=== PATIENT | female | born 1995 | race Hispanic/Latino ===

== ENCOUNTER 2022-02-24 02:25 | Emergency (ER) | payer BC ==
[2022-02-24 03:21] LABS: Absolute Lymphocytes (CBC) 4.8 K/uL (0.7-4.9); Hematocrit 42.3 % (36.0-45.0); Lymphocytes % 40.3 % (15.3-44.8); MCV 96.4 fL (80-100); MPV 8.4 fL (7.6-11.3); RBC Red Blood Cell Count 4.39 M/uL (3.86-4.86)
[2022-02-24 03:35] LABS: Urine Blood 3+ (Negative); Urine Glucose Negative (Negative); Urine Protein Negative (Negative); Urine Specific Gravity 1.025 (1.005-1.030); Urine pH 6.5 (5.0-7.0)
[2022-02-24 03:59] LABS: Potassium 3.8 mmol/L (3.5-5.1)
--- NOTE | 2022-02-24 04:56 | ER ---
Nurse's Notes [facility] Name: Dang Zaidi Age: 26 yrs Sex: Female : 1995 Arrival Date: 02/24/2022 Time: 02:30 Bed 15 Private MD: Diagnosis: Abnormal uterine and vaginal bleeding, unspecified;Threatened Presentation: 02/24 02:41 Chief complaint: Patient states: i found out i was about a week ago. im lg3 supposed to have my first OB visit this coming Thursday. i started bleeding lightly before bed. woke up with heavy cramps and now blood clots. Coronavirus screen: Client denies travel out of the [place] in the last 14 days. At this time, the client does not indicate any symptoms associated with coronavirus-19. Ebola Screen: No symptoms or risks identified at this time. Initial Sepsis Screen: Does the patient meet any 2 criteria? No. Patient's initial sepsis screen is negative. Does the patient have a suspected source of infection? No. Patient's initial sepsis screen is negative. Risk Assessment: Do you want to hurt yourself or someone else? Patient reports no desire to harm self or others. Onset of symptoms was February 23, 2022. 02:41 Method Of Arrival: Ambulatory lg3 02:41 Acuity: KARMEN 3 lg3 Triage Assessment: 02:45 General: Appears in no apparent distress. uncomfortable, Behavior is cooperative, lg3 anxious, crying. Pain: Complains of pain in abdomen Pain currently is 3 out of 10 on a pain scale. Quality of pain is described as crampy. EENT: No deficits noted. No signs and/or symptoms were reported regarding the EENT system. Neuro: No deficits noted. Level of Consciousness is awake, alert, obeys commands, Oriented to person, place, time, situation. Cardiovascular: No deficits noted. Denies chest pain, shortness of breath, Capillary refill < 3 seconds Clubbing of nail beds is absent JVD is absent Patient's skin is warm and dry. Respiratory: No deficits noted. Airway is patent Trachea midline Respiratory effort is even, unlabored, Respiratory pattern is regular, symmetrical. GI: Abdomen is round non-distended, Bowel sounds present X 4 quads. Reports lower abdominal pain, cramping. : Reports vaginal bleeding that is bright red, with clots, moderate flow. Derm: No deficits noted. No signs and/or symptoms reported regarding the dermatologic system. Skin is intact, is healthy with good turgor, Skin is dry, Skin temperature is warm. Musculoskeletal: No deficits noted. No signs and/or symptoms reported regarding the musculoskeletal system. Circulation, motion, and sensation intact. Range of motion: intact in all extremities. 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 - Social history:: Smoking status: Patient denies any tobacco usage or history of. Patient/guardian denies using alcohol, street drugs. Screenin:47 Abuse screen: Denies threats or abuse. Denies injuries from another. Nutritional lg3 screening: No deficits noted. Tuberculosis screening: No symptoms or risk factors identified. Fall Risk None identified. Assessment: 02:49 General: see triage assessment. lg3 03:36 Reassessment: Patient appears in no apparent distress at this time. No changes from lg3 previously documented assessment. Patient and/or family updated on plan of care and expected duration. Pain level reassessed. Patient is alert, oriented x 3, equal unlabored respirations, skin warm/dry/pink. 04:13 Reassessment: Patient appears in no apparent distress at this time. Patient and/or ha1 family updated on plan of care and expected duration. Pain level reassessed. Patient is alert, oriented x 3, equal unlabored respirations, skin warm/dry/pink. 06:28 Reassessment: Patient appears in no apparent distress at this time. No changes from lg3 previously documented assessment. Patient and/or family updated on plan of care and expected duration. Pain level reassessed. Patient is alert, oriented x 3, equal unlabored respirations, skin warm/dry/pink. 06:30 Reassessment: Patient and/or family updated on plan of care and expected duration. Pain ha1 level reassessed. Patient is alert, oriented x 3, equal unlabored respirations, skin warm/dry/pink. being discharged Patient denies pain at this time. Vital Signs: 02:41 BP 144 / 86; Pulse 87; Resp 17 S; Temp 98.1(O); Pulse Ox 99% on R/A; Weight 72.57 kg lg3 (R); Height 5 ft. 3 in. (160.02 cm) (R); Pain 3/10; 03:37 BP 128 / 83; Pulse 81; Resp 16 S; Pulse Ox 100% on R/A; ha1 04:11 BP 128 / 83; Pulse 78; Resp 16 S; Pulse Ox 100% on R/A; ha1 05:00 BP 129 / 82; Pulse 81; Resp 17 S; Pulse Ox 100% on R/A; ha1 06:00 BP 128 / 80; Pulse 82; Resp 17 S; Pulse Ox 100% on R/A; ha1 02:41 Body Mass Index 28.34 (72.57 kg, 160.02 cm) lg3 Vitals: 06:28 Heart Tones 0. lg3 ED Course: 02:30 Patient arrived in ED. ja2 02:32 Zoran Ryan MD is Attending Physician. kdr 02:44 Triage completed. lg3 02:45 Arm band placed on right wrist. lg3 02:47 Patient has correct armband on for positive identification. Bed in low position. Call lg3 light in reach. Side rails up X 1. Client placed on continuous cardiac and pulse oximetry monitoring. NIBP monitoring applied. Door closed. Noise minimized. Warm blanket given. Family accompanied patient. 02:47 Inserted saline lock: 20 gauge in right antecubital area, using aseptic technique. lg3 Blood collected. 02:50 Quantitative Hcg Sent. lg3 02:50 CBC with Diff Sent. lg3 02:50 Basic Metabolic Panel Sent. lg3 02:50 Abo/rh Typing Sent. lg3 02:54 Lee Ann Reid, BARBER is Primary Nurse. lg3 05:00 US Transvaginal Ob In Process Unspecified. EDMS 06:27 Assist provider with pelvic exam: Set up pelvic tray. Performed by Zoran Ryan MD lg3 Specimens sent to lab. Patient tolerated well. IV discontinued, intact, bleeding controlled, No redness/swelling at site. Pressure dressing applied. 06:30 IV discontinued, intact, bleeding controlled, No redness/swelling at site. Pressure ha1 dressing applied. Administered Medications: No medications were administered Medication: 06:27 VIS not applicable for this client. lg3 Point of Care Testing: Urine : 06:27 hCG Reading: Positive; lg3 Outcome: 04:56 Discharge ordered by . kdr 06:27 Discharged to home ambulatory, with significant other. lg3 06:27 Condition: stable 06:27 Discharge instructions given to patient, significant other, Instructed on discharge instructions, follow up and referral plans. Demonstrated understanding of instructions, follow-up care. 06:33 Patient left the ED. ha1 Signatures: Dispatcher [employer] EDMS Zoran Ryan MD MD kdr Gibson, Lacie, RN RN lg3 Didi Paz Heidy, RN RN ha1
--- NOTE | 2022-02-24 04:56 | EDPHYS ---
Physician Documentation [facility] Name: Dang Zaidi Age: 26 yrs Sex: Female : 1995 Arrival Date: 02/24/2022 Time: 02:30 Bed 15 Private MD: ED Physician Zoran Ryan HPI: 02/24 04:20 This 26 yrs old Female presents to ER via Ambulatory with complaints of kdr Vaginal Bleeding, + Preg <12wks. 04:20 The patient presents to the emergency department with vaginal bleeding, that is kdr moderate, with clots. The estimated gestational age is 5 weeks. course: care: none, Leakage of Fluid: none appreciated, Ultrasound: the patient has not had an ultrasound, Risk/complications: no obvious risks or complications are appreciated. Previous pregnancies: the patient has never been . Associated signs and symptoms: The patient has no apparent associated signs or symptoms. The patient has not experienced similar symptoms in the past. The patient has not recently seen a physician. 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 - Social history:: Smoking status: Patient denies any tobacco usage or history of. Patient/guardian denies using alcohol, street drugs. ROS: 04:20 Constitutional: Negative for fever, chills, and weight loss, Eyes: Negative for injury, kdr pain, redness, and discharge, ENT: Negative for injury, pain, and discharge, Neck: Negative for injury, pain, and swelling, Cardiovascular: Negative for chest pain, palpitations, and edema, Respiratory: Negative for shortness of breath, cough, wheezing, and pleuritic chest pain, Back: Negative for injury and pain, MS/Extremity: Negative for injury and deformity, Skin: Negative for injury, rash, and discoloration, Neuro: Negative for headache, weakness, numbness, tingling, and seizure activity. Psych: Negative for depression, anxiety, suicide ideation, homicidal ideation, and hallucinations, Allergy/Immunology: Negative for hives, rash, and allergies, Endocrine: Negative for neck swelling, polydipsia, polyuria, polyphagia, and marked weight changes, Hematologic/Lymphatic: Negative for swollen nodes, abnormal bleeding, and unusual bruising. 04:20 Abdomen/GI: Positive for abdominal pain, nausea, of the suprapubic area, Negative for rectal pain, rectal bleeding. 04:20 : Positive for vaginal bleeding. Exam: 04:20 Constitutional: This is a well developed, well nourished patient who is awake, alert, kdr and in no acute distress. Head/Face: Normocephalic, atraumatic. Eyes: Pupils equal round and reactive to light, extra-ocular motions intact. Lids and lashes normal. Conjunctiva and sclera are non-icteric and not injected. Cornea within normal limits. Periorbital areas with no swelling, redness, or edema. Neck: Trachea midline, no thyromegaly or masses palpated, and no cervical lymphadenopathy. Supple, full range of motion without nuchal rigidity, or vertebral point tenderness. No Meningismus. Chest/axilla: Normal chest wall appearance and motion. Nontender with no deformity. No lesions are appreciated. Cardiovascular: Regular rate and rhythm with a normal S1 and S2. No gallops, murmurs, or rubs. Normal PMI, no JVD. No pulse deficits. Respiratory: Lungs have equal breath sounds bilaterally, clear to auscultation and percussion. No rales, rhonchi or wheezes noted. No increased work of breathing, no retractions or nasal flaring. Back: No spinal tenderness. No costovertebral tenderness. Full range of motion. Skin: Warm, dry with normal turgor. Normal color with no rashes, no lesions, and no evidence of cellulitis. MS/ Extremity: Pulses equal, no cyanosis. Neurovascular intact. Full, normal range of motion. Neuro: Awake and alert, GCS 15, oriented to person, place, time, and situation. Cranial nerves II-XII grossly intact. Motor strength 5/5 in all extremities. Sensory grossly intact. Cerebellar exam normal. Normal gait. Psych: Awake, alert, with orientation to person, place and time. Behavior, mood, and affect are within normal limits. 04:20 Abdomen/GI: Inspection: abdomen appears normal, Bowel sounds: normal, Palpation: soft, mild abdominal tenderness, in the suprapubic area, right lower quadrant and left lower quadrant. 05:37 : Pelvic Exam: External exam: is normal, Speculum exam: scant bleeding, mild kdr bleeding, os that is closed, no tissue in cervix is seen, bimanual exam reveals no cervical motion tenderness, os that is closed, the nurse was present for the exam. Vital Signs: 02:41 BP 144 / 86; Pulse 87; Resp 17 S; Temp 98.1(O); Pulse Ox 99% on R/A; Weight 72.57 kg lg3 (R); Height 5 ft. 3 in. (160.02 cm) (R); Pain 3/10; 03:37 BP 128 / 83; Pulse 81; Resp 16 S; Pulse Ox 100% on R/A; ha1 04:11 BP 128 / 83; Pulse 78; Resp 16 S; Pulse Ox 100% on R/A; ha1 05:00 BP 129 / 82; Pulse 81; Resp 17 S; Pulse Ox 100% on R/A; ha1 06:00 BP 128 / 80; Pulse 82; Resp 17 S; Pulse Ox 100% on R/A; ha1 02:41 Body Mass Index 28.34 (72.57 kg, 160.02 cm) lg3 MDM: 04:20 Data reviewed: vital signs, nurses notes, lab test result(s), radiologic studies. kdr Counseling: I had a detailed discussion with the patient and/or guardian regarding: the historical points, exam findings, and any diagnostic results supporting the discharge/admit diagnosis, lab results, radiology results, the need for outpatient follow up. 04:56 Patient medically screened. kdr 02/24 02:47 Order name: Abo/rh Typing; Complete Time: 04:20 kdr 02/24 02:47 Order name: Basic Metabolic Panel; Complete Time: 04:20 kdr 02/24 02:47 Order name: CBC with Diff; Complete Time: 04:20 kdr 02/24 02:47 Order name: Quantitative Hcg; Complete Time: 04:20 kdr 02/24 03:35 Order name: Urine Dipstick-Ancillary; Complete Time: 04:20 EDMS 02/24 03:46 Order name: Urine --Ancillary (enter results) wm 02/24 02:47 Order name: IV Saline Lock; Complete Time: 02:49 kdr 02/24 02:47 Order name: Labs collected and sent; Complete Time: 02:50 kdr 02/24 02:47 Order name: NPO; Complete Time: 02:50 kdr 02/24 02:47 Order name: Urine Dipstick-Ancillary (obtain specimen); Complete Time: 03:35 kdr 02/24 04:19 Order name: US Transvaginal Ob kdr Administered Medications: No medications were administered Point of Care Testing: Urine : 06:27 hCG Reading: Positive; lg3 Disposition Summary: 02/24/22 04:56 Discharge Ordered Location: Home kdr Problem: new kdr Symptoms: have improved kdr Condition: Stable kdr Diagnosis - Abnormal uterine and vaginal bleeding, unspecified kdr - Threatened kdr Followup: kdr - With: Private Physician - When: 48 Hours - Reason: If symptoms return, Further diagnostic work-up, Recheck today's complaints, Continuance of care, Re-evaluation by your physician Discharge Instructions: - Discharge Summary Sheet kdr - Vaginal Bleeding During , First Trimester kdr - Threatened Miscarriage, [id number] kdr Forms: - Medication Reconciliation Form kdr - Thank You Letter kdr Signatures: Dispatcher [employer] Zoran Orlando MD MD kdr Lee Ann Reid, RN RN lg3
[2022-02-24 06:02] LABS: Urine Specific Gravity/Preg 1.025 (1.005-1.030)
[2022-02-24 06:48] VITALS: TEMP 98.1
[2022-02-24 06:51] VITALS: O2SAT 100
[2022-02-24 07:00] VITALS: BP 128/80
--- NOTE | 2022-02-24 15:09 | RAD REPORT ---
EXAM DESCRIPTION: US - Transvaginal OB - 02/24/2022 4:58 am CLINICAL HISTORY: 26 years Female, Abd pain COMPARISON: None. TECHNIQUE: Complete first trimester surgical ultrasound obtained with transvaginal imaging. FINDINGS: Uterus: The uterus measures 8.1 x 4.8 x 5.0 cm. Endometrial thickness of 0.4 cm. Gestational sac: Not visualized. pole: Not visualized. heart motion: Not visualized. Yolk sac: Not visualized. Placenta: Not visualized. Right ovary: The right ovary measures 2.9 x 1.7 x 1.7 cm. Left ovary: The left ovary measures 2.5 x 0.8 x 1.3 cm. Adnexa: No additional adnexal findings. Free fluid: No free pelvic fluid. Duplex imaging: Color and spectral Doppler imaging demonstrates blood flow and ovaries. IMPRESSION: 1. No intrauterine identified. Differential considerations include early malinda l , ectopic , and miscarriage. Close continued clinical, laboratory, and sonographi c follow-up recommended. Electronically signed by: Mayito Arroyo 02/24/2022 6:15 AM CDT Due to temporary technical issues with the PACS/Fluency reporting system, reports are being signed by the in house radiologists without review as a courtesy to insure prompt reporting. The interpreting radiologist is fully responsible for the content of the report.
== END 2022-02-24 06:33 | disposition home or self-care (01) ==
LOC: ER 02:25
DX: O20.0 Threatened abortion (principal); Z3A.01 Less than 8 weeks gestation of pregnancy
CPT/HCPCS: 36415; 76817; 80048; 81003; 81025; 84702; 85025; 86900; 86901; 88305; 99284

== ENCOUNTER 2025-04-11 13:31 | Emergency (ER) | payer BC, OTHER ==
[2025-04-11 14:28] LABS: Absolute Lymphocytes (CBC) 1.5 K/uL (0.7-4.9); Hematocrit 45.6 % (36.0-45.0); Hemoglobin 15.5 g/dL (12.0-15.0); MCH 31.5 pg (27.0-35.0); MCHC 33.9 g/dL (32.0-36.0); MCV 92.7 fL (80-100); MPV 8.8 fL (7.6-11.3); Nucleated RBC Absolute Count 0.0 (0-0); Nucleated Red Blood Cells % 0.0 % (0-0); RBC Red Blood Cell Count 4.92 M/uL (3.86-4.86); White Blood Count 17.10 thou/uL (4.3-10.9)
[2025-04-11] MEDS ORDERED: KETOROLAC 30 MG/ML INJ ONE (14:33)
[2025-04-11] MEDS ORDERED: ONDANSETRON 4 MG/2 ML VIAL ONE (14:33)
[2025-04-11] MEDS ORDERED: FAMOTIDINE 20 MG/2 ML VIAL IV ONE (14:33)
--- NOTE | 2025-04-11 14:33 | RAD REPORT ---
EXAM: Abdominal exam Limited ultrasound CLINICAL HISTORY: Abdominal pain COMPARISON: None FINDINGS: A gallstone is not seen. Gallbladder wall not thickened. Biliary tree normal caliber IMPRESSION: No significant abnormalities displayed
[2025-04-11] MEDS ORDERED: NA CHLORIDE 0.9% 1,000 ML ONE (14:34)
--- NOTE | 2025-04-11 15:29 | RAD REPORT ---
EXAMINATION: CT ABDOMEN AND PELVIS WITH CONTRAST CLINICAL INDICATION: 2007 TECHNIQUE: CT abdomen and pelvis was performed, after the administration of 100 cc Isovue-300.. Sagit andrea and coronal reconstructions were obtained. One or more of the following dose reduction techniques were used: Automated exposure control, adjustment of the mA and kV according to patient si ze, and iterative reconstruction. Unless otherwise specified, incidental findings do not require dedicated imaging follow-up. [id number]. Oral contrast was not given which limits evaluation of bowel and appendix. COMPARISON: .None FINDINGS: Liver, spleen, pancreas, adrenals and kidneys appear unremarkable No evidence of diverticulitis. Period fluid within nondilated small bowel Appendectomy. No adnexal mass : IMPRESSION: Fluid within nondilated small bowel may indicate an enteritis
[2025-04-11 15:35] LABS: ALT/SGPT 25.0 U/L (13-56); AST/SGOT 12.0 U/L (15-37); Albumin 3.8 g/dL (3.4-5.0); Albumin/Globulin Ratio 1.1 (1.1-1.8); Alkaline Phosphatase 88.0 U/L (45-117); Anion Gap 11.5 mEq/L (5.0-15.0); BUN Blood Urea Nitrogen 15.0 mg/dL (7-18); Globulin 3.6 g/dL (2.3-3.5); Glucose Level 135.0 mg/dL (74-106); Lipase 18.0 U/L (13-75); Potassium 3.5 mEq/L (3.5-5.1)
[2025-04-11 15:47] LABS: White Blood Cell Scan OK (OK)
[2025-04-11 15:48] LABS: Blood Morphology Comment NOT SEEN (NOT SEEN)
--- NOTE | 2025-04-11 16:08 | ER ---
Nurse's Notes [facility] Name: Dang Zaidi Age: 29 yrs Sex: Female : 1995 Arrival Date: 04/11/2025 Time: 13:31 Bed 16 Private MD: Diagnosis: Enteritis Presentation: 04/11 13:47 Chief complaint: Patient states: UPPER ABD PAIN STARTED THIS AM. TRIED TO EAT YOGURT db DID NOT HELP. STATES N/V. DIARRHEA. DENIES HAVING THIS PAIN BEFORE. Coronavirus screen: Client denies travel out of the [place] in the last 14 days. At this time, the client does not indicate any symptoms associated with coronavirus-19. Ebola Screen: Patient negative for fever greater than or equal to 101.5 degrees Fahrenheit, and additional compatible Ebola Virus Disease symptoms Patient denies exposure to infectious person. Patient denies travel to an Ebola-affected area in the 21 days before illness onset. No symptoms or risks identified at this time. Initial Sepsis Screen: Does the patient meet any 2 criteria? No. Patient's initial sepsis screen is negative. Does the patient have a suspected source of infection? No. Patient's initial sepsis screen is negative. Risk Assessment: Do you want to hurt yourself or someone else? Patient reports no desire to harm self or others. Onset of symptoms was April 11, 2025. 13:47 Method Of Arrival: Wheelchair db 13:47 Acuity: KARMEN 3 db Triage Assessment: 13:51 General: Appears in no apparent distress. uncomfortable, Behavior is cooperative, db anxious. Pain: Complains of pain in epigastric area. GI: Abdomen is distended. 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 - Infectious Disease History:: Denies. - Social history:: Smoking status: Patient denies any tobacco usage or history of. Screenin:50 [facility] ED Fall Risk Assessment (Adult) History of falling in the last 3 months, dd2 including since admission No falls in past 3 months (0 pts) Confusion or Disorientation No (0 pts) Intoxicated or Sedated No (0 pts) Impaired Gait No (0 pts) Mobility Assist Device Used No (0 pt) Altered Elimination No (0 pt) Score/Fall Risk Level 0 - 2 = Low Risk Oriented to surroundings, Maintained a safe environment, Educated pt \T\ family on fall prevention, incl call for assistance when getting out of bed, Assessed \T\ reinforced patient's understanding of fall precautions, Hourly rounding (assess needs \T\ fall precautionary measures) done. Abuse screen: Denies threats or abuse. Denies injuries from another. Nutritional screening: No deficits noted. Tuberculosis screening: No symptoms or risk factors identified. Assessment: 14:50 General: Appears in no apparent distress. uncomfortable, Behavior is cooperative, dd2 appropriate for age, anxious. Pain: Complains of pain in epigastric area and right lower quadrant Pain currently is 10 out of 10 on a pain scale. Neuro: No deficits noted. Cardiovascular: No deficits noted. Respiratory: No deficits noted. GI: Abdomen is non-distended, Bowel sounds present X 4 quads. Abd is soft X 4 quads Abdomen is tender to palpation in epigastric area and right lower quadrant. : No deficits noted. No signs and/or symptoms were reported regarding the genitourinary system. EENT: No deficits noted. No signs and/or symptoms were reported regarding the EENT system. Derm: No deficits noted. No signs and/or symptoms reported regarding the dermatologic system. Musculoskeletal: No deficits noted. No signs and/or symptoms reported regarding the musculoskeletal system. Circulation, motion, and sensation intact. Range of motion: intact in all extremities. Vital Signs: 13:47 BP 110 / 56; Pulse 59; Resp 16; Temp 97.8; Pulse Ox 100% ; Weight 81.65 kg; Height 5 db ft. 0 in. ; 14:45 BP 116 / 62; Pulse 64; Resp 17; Pulse Ox 100% on R/A; dd2 15:30 BP 113 / 57; Pulse 60; Resp 16; Pulse Ox 100% on R/A; dd2 17:05 BP 117 / 66; Pulse 65; Resp 16; Pulse Ox 100% on R/A; dd2 13:47 Body Mass Index 35.15 (81.65 kg, 152.4 cm) db ED Course: 13:32 Patient arrived in ED. 13:34 Roger Vianca, YAIR [facility]. kb 13:34 Ronald Penaloza MD is Attending Physician. kb 13:51 Triage completed. db 13:51 Arm band placed on Patient placed in an exam room. db 14:22 Abdomen Limited US In Process Unspecified. EDMS 14:27 CBC with Diff Sent. dd2 14:27 CMP Sent. dd2 14:27 Lipase Sent. dd2 14:50 Patient has correct armband on for positive identification. Bed in low position. Call dd2 light in reach. Side rails up X2. Client placed on continuous cardiac and pulse oximetry monitoring. NIBP monitoring applied. Door closed. Noise minimized. Warm blanket given. Pillow given. Verbal reassurance given. 14:50 No provider procedures requiring assistance completed. Initial lab(s) drawn, by me, dd2 sent to lab. Inserted saline lock: 20 gauge in left antecubital area, using aseptic technique. Blood collected. Flushed with 10 mL NS. Patient maintains SpO2 saturation greater than 95% on room air. 15:12 CT Abd/Pelvis - IV Contrast Only In Process Unspecified. EDMS 17:05 Provided Education on: d/c education. dd2 17:05 IV discontinued, intact, bleeding controlled, No redness/swelling at site. Pressure dd2 dressing applied. Administered Medications: 15:00 Drug: TORadol - Ketorolac IVP 15 mg IVP once Route: IVP; Site: left antecubital; dd2 15:15 Follow up: Response: No adverse reaction dd2 15:06 Drug: Famotidine IVP 20 mg IVP once; dilute with 10 mL 0.9% NaCl; give over 2 minutes dd2 Route: IVP; Site: left antecubital; 15:21 Follow up: Response: No adverse reaction dd2 15:06 Drug: Ondansetron IVP 4 mg IVP once; over 2 minutes Route: IVP; Site: left antecubital; dd2 15:21 Follow up: Response: No adverse reaction dd2 15:06 Drug: NS 0.9% IV 1000 ml IV at 1 bolus Per protocol; to be given as a bolus over 60 dd2 minutes Route: IV; Rate: 1 bolus; Site: left antecubital; 16:06 Follow up: IV Status: Completed infusion dd2 Medication: 14:50 VIS not applicable for this client. dd2 Outcome: 16:08 Discharge ordered by MD. malin 17:05 Discharged to home ambulatory, dd2 17:05 Condition: stable 17:05 Discharge instructions given to patient, significant other, Instructed on discharge instructions, follow up and referral plans. medication usage, Demonstrated understanding of instructions, follow-up care, medications, Prescriptions given X 2, 17:10 Patient left the ED. bd Signatures: Dispatcher [employer] EDMS Vianca Duran, [place]-[employer] VALVE AND REGULATOR REPAIRER-Renate Osorio Mary, Reg Reg mr Barbara Saleh, RN RN db NAIF LI RN RN dd2
--- NOTE | 2025-04-11 16:09 | EDPHYS ---
Physician Documentation [facility] Name: Dang Zaidi Age: 29 yrs Sex: Female : 1995 Arrival Date: 04/11/2025 Time: 13:31 Bed 16 Private MD: ED Physician Ronald Penaloza HPI: 04/11 16:17 This 29 yrs old Female presents to ER via Wheelchair with complaints of kb Abdominal Pain. 16:17 Patient is a 29-year-old female who presents for nausea, vomiting, diarrhea, abdominal kb pain that started this morning is gotten worse. Unable to tolerate anything by mouth. Denies fever.. 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 - Infectious Disease History:: Denies. - Social history:: Smoking status: Patient denies any tobacco usage or history of. ROS: 16:17 Constitutional: As per HPI kb Exam: 16:17 Constitutional: This is a well developed, well nourished patient who is awake, alert, kb and in no acute distress. Head/Face: Normocephalic, atraumatic. ENT: Moist Mucous membranes Cardiovascular: Regular rate Respiratory: Respirations even and unlabored. No increased work of breathing. Talking in full sentences Skin: Warm, dry with normal turgor. Normal color. MS/ Extremity: Pulses equal, no cyanosis. Neurovascular intact. Full, normal range of motion. Neuro: Awake and alert, GCS 15, oriented to person, place, time, and situation. 16:17 Abdomen/GI: Inspection: abdomen appears normal, Bowel sounds: normal, Palpation: soft, in all quadrants, moderate abdominal tenderness, in all quadrants, Vital Signs: 13:47 BP 110 / 56; Pulse 59; Resp 16; Temp 97.8; Pulse Ox 100% ; Weight 81.65 kg; Height 5 db ft. 0 in. ; 14:45 BP 116 / 62; Pulse 64; Resp 17; Pulse Ox 100% on R/A; dd2 15:30 BP 113 / 57; Pulse 60; Resp 16; Pulse Ox 100% on R/A; dd2 17:05 BP 117 / 66; Pulse 65; Resp 16; Pulse Ox 100% on R/A; dd2 13:47 Body Mass Index 35.15 (81.65 kg, 152.4 cm) db MDM: 13:34 Medical Screening Exam initiated kb 16:17 Differential diagnosis: cholecystitis, Cholelithiasis, gastritis, gastroesophageal kb reflux disease, non-specific abd pain, pancreatitis, Gastroenteritis. Data reviewed: vital signs, nurses notes. I considered the following discharge prescriptions or medication management in the emergency department I discussed and recommended Over The Counter medications, Antibiotics: At this time antibiotics are not recommended. Historians other than the Patient: Parent: mother. Counseling: I had a detailed discussion with the patient and/or guardian regarding the historical points, exam findings, and any diagnostic results supporting the discharge/admit diagnosis, lab results, radiology results, the need for outpatient follow up, a family practitioner, to return to the emergency department if symptoms worsen or persist or if there are any questions or concerns that arise at home. 04/11 13:52 Order name: CBC with Diff; Complete Time: 15:49 kb 04/11 13:52 Order name: CMP; Complete Time: 15:37 kb 04/11 13:52 Order name: Lipase; Complete Time: 15:37 kb 04/11 13:52 Order name: Test, Urine; Complete Time: 14:53 kb 04/11 15:48 Order name: CBC Smear Scan; Complete Time: 15:49 EDMS 04/11 13:52 Order name: Abdomen Limited US; Complete Time: 14:38 kb 04/11 14:39 Order name: CT Abd/Pelvis - IV Contrast Only; Complete Time: 15:37 kb 04/11 13:52 Order name: IV Saline Lock; Complete Time: 14:27 kb 04/11 13:52 Order name: Labs collected and sent; Complete Time: 14:27 kb 04/11 14:32 Order name: Labs - recollect needed: recollect green top; Complete Time: 15:03 bd Administered Medications: 15:00 Drug: TORadol - Ketorolac IVP 15 mg IVP once Route: IVP; Site: left antecubital; dd2 15:15 Follow up: Response: No adverse reaction dd2 15:06 Drug: Famotidine IVP 20 mg IVP once; dilute with 10 mL 0.9% NaCl; give over 2 minutes dd2 Route: IVP; Site: left antecubital; 15:21 Follow up: Response: No adverse reaction dd2 15:06 Drug: Ondansetron IVP 4 mg IVP once; over 2 minutes Route: IVP; Site: left antecubital; dd2 15:21 Follow up: Response: No adverse reaction dd2 15:06 Drug: NS 0.9% IV 1000 ml IV at 1 bolus Per protocol; to be given as a bolus over 60 dd2 minutes Route: IV; Rate: 1 bolus; Site: left antecubital; 16:06 Follow up: IV Status: Completed infusion dd2 Disposition: 17:13 Co-signature as Attending Physician, Ronald Penaloza MD I reviewed the patient's care rn provided by the Advanced Practice Provider and agree with the diagnosis and treatment plan. Disposition Summary: 04/11/25 16:08 Discharge Ordered Notes: Location: Home kb Condition: Stable kb Diagnosis - Enteritis kb Followup: kb - With: Emergency Department - When: As needed - Reason: Worsening of condition Followup: kb - With: Private Physician - When: 2 - 3 days - Reason: Recheck today's complaints, Continuance of care, Re-evaluation by your physician Discharge Instructions: - Discharge Summary Sheet kb - Viral Gastroenteritis, Adult, [id number] kb Forms: - Medication Reconciliation Form kb - Antibiotic Education kb - Prescription Opioid Use kb - Patient Portal Instructions kb - Leadership Thank You Letter kb Prescriptions: - ondansetron 4 mg Oral Tablet,disintegrating - take 1 tablet ORAL route every 6 hours as needed for nausea and vomiting; 12 kb tablet; Refills: 0, Product Selection Permitted - dicyclomine 20 mg Oral tablet - take 1 tablet ORAL route 4 times per day As needed; 20 tablet; Refills: 0, kb Product Selection Permitted Signatures: Dispatcher [employer] EDMS Vianca Duran, YAIR COLEMAN-Renate Osorio Roman, MD MD rn Benton, Danielle, RN RN db DAVIS, DIANA, RN RN dd2 Corrections: (The following items were deleted from the chart) 15:49 14:33 Manual Differential ordered. EDMS EDMS
[2025-04-12 01:11] VITALS: TEMP 97.8; O2SAT 100
[2025-04-12 01:15] VITALS: BP 117/66
== END 2025-04-11 17:10 | disposition home or self-care (01) ==
LOC: ER 13:31
DX: K52.9 Noninfective gastroenteritis and colitis, unspecified (principal)
CPT/HCPCS: 96361; 85025; 36415; 81025; 83690; 80053; 74177; 76705; 96375; 96374; 99284; Q9967; J1885; J2405; J7030